=== PATIENT | male | born 1975 | race Hispanic/Latino ===

== ENCOUNTER → 2017-07-16 | Outpatient (REF) | payer OTHER ==
[2017-07-16 22:55] LABS: INFLUENZA A AMPLIFICATION NEGATIVE (NEGATIVE); INFLUENZA B AMPLIFICATION NEGATIVE (NEGATIVE)
== END ==
LOC: M LAB REF 21:44
DX: J11.1 Influenza due to unidentified influenza virus with other respiratory manifestations (principal)

== ENCOUNTER 2017-08-05 16:03 | Emergency (ER) | payer OTHER ==
[2017-08-05] MEDS: ALBUTEROL SULFATE 2.5 MG/0.5 ML INH NEB SOLN NEB (16:49)
[2017-08-05] MEDS: BENZONATATE 100 MG CAP PO (18:13)
[2017-08-05] MEDS: AUGMENTIN 875 MG TAB PO (18:13)
[2017-08-05] MEDS: guaiFENesin/CODEINE SYRUP 5 ML UDC PO (18:13)
[2017-08-05] MEDS: predniSONE 20 MG TAB PO (18:14)
[2017-08-05] MEDS: ALBUTEROL 90 MCG/ACT 8GM HFA INHALER INH (18:18)
== END 2017-08-05 18:31 | disposition home or self-care (01) ==
LOC: M ED 16:03
DX: J40 Bronchitis, not specified as acute or chronic (principal); J32.9 Chronic sinusitis, unspecified
CPT/HCPCS: 71046

== ENCOUNTER → 2025-03-24 | Outpatient (CLI) | payer OTHER ==
[~2025-03-24] MED LIST: AUGM875T28 PO; CHERSYP3 PO; PRED20TA PO; TESS100C PO; VENTAER IN
== END ==
LOC: M SLEEP HO 11:30
PROVIDERS: ATTEND Physician Assistant
DX: G47.10 Hypersomnia, unspecified (principal)

== ENCOUNTER → 2025-04-15 | Outpatient (CLI) | payer OTHER ==
[2025-04-15 15:56] LABS: BASO # 0.0 10^3/uL (0.0-0.2); BASO % 0.5 % (0.0-1.0); EOS # 0.4 10^3/uL (0.0-0.5); EOS % 4.8 % (0.0-3.0); LYMPH # 1.9 10^3/uL (1.5-5.0); LYMPH % 24.3 % (24.0-44.0); MONO # 0.9 10^3/uL (0.0-0.8); MONO % 10.8 % (2.0-8.0); NEUTROPHILS # 4.7 10^3/uL (1.5-8.5); NEUTROPHILS % 59.3 % (36.0-66.0); PLATELET COUNT, AUTOMATED 272 10^3/uL (150-450)
[2025-04-15 16:18] LABS: CREATININE, URINE 115.9 MG/DL; MALB URINE SIEMENS 13.0 MG/L; MAU/CREAT RATIO 11.2 MCG/MG (0.0-30.0)
[2025-04-15 16:19] LABS: IRON (FE) 11 UG/DL (65-175); PERCENT SATURATION 2.9 % (19.7-50.0)
[2025-04-15 16:20] LABS: ALT/SGPT 38 U/L (7.0-40); AST/SGOT 22 U/L (<34); C REACTIVE PROTEIN QUANTITATIV 0.57 MG/DL (<1.0); CALCIUM LEVEL 8.6 MG/DL (8.5-10.1); CARBON DIOXIDE LEVEL 27 MMOL/L (20-31); CHLORIDE LEVEL 102 MMOL/L (98-107); CREATININE FOR GFR 0.80 MG/DL (0.70-1.30); GLOMERULAR FILTRATION RATE > 90.0 (>56); POTASSIUM SERUM 4.1 MMOL/L (3.5-5.1); SODIUM LEVEL 138 MMOL/L (136-145)
== END ==
LOC: M LAB 13:55
PROVIDERS: ATTEND Physician Assistant
DX: D64.9 Anemia, unspecified (principal); E11.65 Type 2 diabetes mellitus with hyperglycemia; K21.9 Gastro-esophageal reflux disease without esophagitis